=== PATIENT | male | born 1995 | race Caucasian/White ===

== ENCOUNTER 2020-01-23 16:31 | Emergency (ER) | payer OTHER ==
[2020-01-23 16:45] VITALS: TEMP 98.4; BMI 35.6
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
[2020-01-23 19:08] LABS: BASO % 0.5 % (0-2.0); EOS % 0.1 % (0-4.5); HEMATOCRIT 43.1 % (35.4-49); HEMOGLOBIN 14.5 GM/dL (11.7-16.9); LYMPH % 16.3 % (8-40); MCHC 33.6 g/dl (32.0-35.9); MEAN CELL VOLUME 89.4 fl (80-96); MEAN PLT VOLUME 10.3 fl (7.5-11.1); MONO % 7.8 % (3.8-10.2); NEUT % 75.3 % (42.8-82.8); PLATELET COUNT 212 K/MM3 (134-434); RBC 4.83 M/mm3 (4.00-5.60); RDW 13.5 % (11.9-15.9); WHITE BLOOD COUNT 12.9 K/mm3 (4.0-10.0)
[2020-01-23 19:14] LABS: INR 1.13 (0.83-1.09); PROTHROMBIN TIME (PATIENT) 13.4 SEC (9.7-13.0)
[2020-01-23 19:17] LABS: ACTIVATED PTT 30.8 SECONDS (25.2-36.5)
[2020-01-23 19:30] LABS: ALBUMIN 4.5 g/dl (3.4-5.0); BILIRUBIN,TOTAL 0.7 mg/dL (0.2-1); BLOOD UREA NITROGEN 14.3 mg/dL (7-18); CALCIUM 9.3 mg/dL (8.5-10.1); CREATININE 1.2 mg/dL (0.55-1.3); POTASSIUM 4.1 mmol/L (3.5-5.1); TOT PROT 7.7 g/dl (6.4-8.2)
[2020-01-23 20:38] VITALS: BP 112/73; PULSE 78
[2020-01-23 20:52] LABS: URINE APPEARANCE CLEAR; URINE BILIRUBIN NEGATIVE (NEGATIVE); URINE COLOR YELLOW; URINE GLUCOSE (UA) NEGATIVE (NEGATIVE); URINE KETONE NEGATIVE (NEGATIVE); URINE LEUK ESTERASE NEGATIVE (NEGATIVE); URINE NITRITE NEGATIVE (NEGATIVE); URINE PROTEIN NEGATIVE (NEGATIVE); URINE UROBILINOGEN 0.2 mg/dL (0.2-1.0)
[2020-01-23] MEDS ORDERED: ACETAMINOPHEN 325 MG TABLET (FP) PO ONE (21:11)
[2020-01-23] MEDS ORDERED: ACETAMINOPHEN 325 MG TABLET (FP) ONE (21:13)
--- NOTE | 2020-01-25 11:01 | EKG ---
Test Reason : Blood Pressure : / mmHG Vent. Rate : 075 BPM Atrial Rate : 075 BPM P-R Int : 152 ms QRS Dur : 080 ms QT Int : 366 ms P-R-T Axes : 022 074 027 degrees QTc Int : 408 ms NORMAL SINUS RHYTHM WITH SINUS ARRHYTHMIA NORMAL ECG NO PREVIOUS ECGS AVAILABLE Confirmed by SHANTE RICKETTS MD ([id number]) on 01/25/2020 11:01:07 AM Referred By: Confirmed By:SHANTE RICKETTS MD
== END 2020-01-23 21:44 | disposition home or self-care (01) ==
LOC: JER 16:31
DX: R07.9 Chest pain, unspecified (principal); R06.02 Shortness of breath
CPT/HCPCS: 36415; 71045-TC-FY; 71260-TC; 72125-TC; 72170-TC-FY; 74177-TC; 80053; 81003; 84484; 85025; 85610; 85730; 93005; 93010; 99285-25